=== PATIENT | male | born 1955 | race Caucasian/White ===

== ENCOUNTER → 2022-05-30 10:40 | Outpatient (CLI) | payer MEDICARE, OTHER, SELFPAY ==
--- NOTE | ~2022-05-30 | XR_ITS ---
EXAMINATION: XR chest 2V 05/30/2022 10:57 INDICATION: Chronic cough PROCEDURE: 2 view chest COMPARISON: No prior studies for comparison. FINDINGS: The lungs are clear. The cardiomediastinal silhouette is within normal limits. There are no pleural effusions. There is no pneumothorax suspected. IMPRESSION: 1: NO ACUTE CARDIOPULMONARY DISEASE. Reviewed, dictated and finalized at location A.
== END ==
PROVIDERS: PCP Family Medicine; Visit Provider Physician Assistant
DX: R05.3 Chronic cough (principal)
CPT/HCPCS: 71046

== ENCOUNTER 2022-07-11 08:11 | Outpatient (CLI) | payer MEDICARE, OTHER, SELFPAY ==
--- NOTE | 2022-08-10 11:17 | WPDSLEEPSTUD ---
Sleep Study Date of Study: 07/11/22 Ordering Provider: Nelson Cain DO Interpreting Physician: Leidy Boss MD Sleep Study Type: Split Polysomnogram Height: 1.88 m Weight: 92.986 kg Body Mass Index: 26.3 Neck Circumference (inches): 16.5 [place]: 6 PMFSH Past Medical History Medical History A-fib Essential hypertension IFG (impaired fasting glucose) Pure hypercholesterolemia Family History Family History Father Family history of pancreatic cancer Other Family history of malignant neoplasm Social History Social History Smoking status: Never smoker Alcohol intake: current Alcohol use details: social drinker Substance use: never Substance use type: does not use Gender identity (if verbalized by the patient): Male Sexual Orientation (if Verbalized by the Patient): Straight or Heterosexual Spiritual care concerns: No Medications Home Medications Medication Instructions Recorded Confirmed Type lisinopril 20 mg tablet 20 mg PO DAILY #90 tabs 04/03/22 08/16/22 Rx rivaroxaban 20 mg tablet (Xarelto) 20 mg PO QPM #90 tabs 05/18/22 08/16/22 Rx metoprolol succinate 25 mg 12.5 mg PO DAILY #30 tabs 08/08/22 08/16/22 Rx tablet,extended release 24 hr Arousals Baseline Titration Periodic Limb Movements Baseline Titration Oximetry Data Baseline Titration EEG Profile EEG was unremarkable, no evidence of seizures. Assessment and Plan Data The data obtained during this sleep study is adequate for interpretation. Certification This sleep study has been reviewed by a board certified sleep medicine physician.
--- NOTE | 2022-08-14 12:10 | WPDSLEEPSTUD ---
Sleep Study Date of Study: 07/11/22 Ordering Provider: Nelson Cain DO Interpreting Physician: Marge Mirza DO Sleep Study Type: Split Polysomnogram Height: 1.88 m Weight: 92.986 kg Body Mass Index: 26.3 Neck Circumference (inches): 16.5 [place]: 6 Reason for Sleep Study Rule out CONNER due to atrial fibrillation Sleep History The patient is a 67-year-old male with hypertension, atrial fibrillation and dyslipidemia that had a sleep study ordered by his contact lens assistant for evaluation of sleep apnea. The patient denies awakening from sleep short of breath. He denies awakening at night with heartburn, belching or cough. He occasionally snores but it is rarely loud enough that others complain. He occasionally has trouble sleeping when he has a cold. He denies waking up gasping for air throughout the night. He denies having breathing problems at night observed by himself or others. He denies sweating excessively at night. He denies having heart palpitations or irregular heartbeats during the night. He occasionally falls asleep during the day but never while driving. He denies sleep paralysis, cataplexy and hypnagogic / hypnopompic hallucinations. He denies having trouble at school or work due to sleepiness. He denies feeling afraid of going to sleep. He denies having nightmares. He rarely remembers his dreams. He denies having thoughts racing through his mind. He denies feeling sad or depressed. He occasionally has anxiety. He denies having muscular tension. He denies noticing parts of his body jerk. He denies kicking during the night. He denies having crawling and aching feelings in his legs as well as leg pain during the night. He denies grinding his teeth during sleep and awakening with morning jaw pain. He is rarely bothered by pain during the day but never awakened by pain during the night. He occasionally wakes up feeling stiff in the morning. He occasionally wakes up with sore or achy muscles. He denies waking up with pain in the neck, spine and other joints. He goes to bed at 11:30 p.m. on both weekdays and weekends. It takes him an hour to fall asleep. He wakes up 1-2 times throughout the night for unknown reasons. It takes him 1-2 hours to fall back asleep. He wakes up at 6:30 a.m. on weekdays and at 7:00 a.m. on the weekends. he typically gets 6 hours of sleep per night. He will stay in bed for 1 hour after waking up in the morning. He denies consuming any caffeinated beverages within 2 hours of bedtime. He does not engage in physical exercise before bedtime. He will watch television before falling asleep. He will take naps in the afternoon or the evening and they are refreshing. He drinks 3 cups of caffeinated beverage per day. He will occasionally consume alcohol. He denies tobacco and recreational drug use. [facility] Past Medical History Medical History A-fib Essential hypertension IFG (impaired fasting glucose) Pure hypercholesterolemia Family History Family History Father Family history of pancreatic cancer Other Family history of malignant neoplasm Social History Social History Smoking status: Never smoker Alcohol intake: current Alcohol use details: social drinker Substance use: never Substance use type: does not use Gender identity (if verbalized by the patient): Male Sexual Orientation (if Verbalized by the Patient): Straight or Heterosexual Spiritual care concerns: No Medications Home Medications Medication Instructions Recorded Confirmed Type lisinopril 20 mg tablet 20 mg PO DAILY #90 tabs 04/03/22 06/02/22 Rx rivaroxaban 20 mg tablet (Xarelto) 20 mg PO QPM #90 tabs 05/18/22 06/02/22 Rx metoprolol succinate 25 mg 12.5 mg PO DAILY #30 tabs 08/08/22 Rx tablet,extended release 24 hr
[2022-08-14 12:31] VITALS: BMI 26.3
== END 2022-07-12 04:22 | disposition home or self-care (01) ==
LOC: ANHCSM 08:32
PROVIDERS: PCP Family Medicine; Visit Provider Internal Medicine Cardiovascular Disease
DX: G47.33 Obstructive sleep apnea (adult) (pediatric) (principal); I48.91 Unspecified atrial fibrillation; I10 Essential (primary) hypertension
CPT/HCPCS: 95810; 95811